=== PATIENT | female | born 1960 | race Caucasian/White ===

== ENCOUNTER 2020-11-30 16:37 | Emergency (ER) | payer BC ==
[2020-11-30 18:49] VITALS: BP 111/68; PULSE 78
--- NOTE | 2020-11-30 18:57 | EDM.PDOC ---
ED HPI GENERAL MEDICAL PROBLEM - General Stated Complaint: ULTRASOUND LEFT CALF Time Seen by Provider: 11/30/20 18:50 Source of Information: Reports: Patient History Limitations: Reports: No Limitations - History of Present Illness INITIAL COMMENTS - FREE TEXT/NARRATIVE: ED with c/o discomfort to posterior left calf. Started Saturday. Recent surgery to left hip last laproscopy to repair tendon and shave bone. Dr told her she should be checked to rule out clot. No clotting hx. Ambulating with crutches. No SOB left calf Pain Score (Numeric/FACES): 2 - Related Data Allergies Allergy/AdvReac Type Severity Reaction Status Date / Time acetaminophen [From Percocet] AdvReac Itching Verified 11/30/20 18:55 oxycodone HCl [From Percocet] AdvReac Itching Verified 11/30/20 18:55 Home Meds: Home Meds Acetaminophen [Tylenol] 650 mg PO Q4H PRN 12/14/14 [History] Past Medical History - Past Health History Medical/Surgical History: Denies Medical/Surgical History ED ROS GENERAL - Review of Systems Review Of Systems: Comprehensive ROS is negative, except as noted in HPI. ED EXAM, GENERAL - Physical Exam Exam: See Below Exam Limited By: No Limitations General Appearance: Alert, No Apparent Distress Ears: Normal External Exam Nose: Normal Inspection Throat/Mouth: Normal Inspection Head: Atraumatic, Normocephalic Neck: Normal Inspection Respiratory/Chest: No Respiratory Distress, Lungs Clear Cardiovascular: Normal Peripheral Pulses, Regular Rate, Rhythm Extremities: Other (dime size frimness left posterior calf.) Neurological: Alert, Oriented Course - Vital Signs Last Recorded V/S: Last Vital Signs Temp 98.0 F 11/30/20 18:48 Pulse 78 11/30/20 18:48 Resp 18 11/30/20 18:48 BP 111/68 11/30/20 18:48 Pulse Ox 97 11/30/20 18:48 - Orders/Labs/Meds Meds: Medications Discontinued Medications Generic Name Dose Route Start Last Admin Trade Name Freq PRN Reason Stop Dose Admin Enoxaparin Sodium 60 mg 11/30/20 20:47 Lovenox SUBCUT 11/30/20 20:48 ONETIME ONE Departure - Departure Time of Disposition: 20:55 Disposition: Home, Self-Care 01 Condition: Good Clinical Impression: Status post hip surgery, Superficial vein thrombosis - Discharge Information *PRESCRIPTION DRUG MONITORING PROGRAM REVIEWED*: No *COPY OF PRESCRIPTION DRUG MONITORING REPORT IN PATIENT LORRAINE: No Instructions: Venous Thromboembolism Prevention Additional Instructions: aspirin 81mg EC daily clinic follow up or phone contact with surgeon regarding superficial DVT ( isolated left gastrocnemius) Urgent follow up if any SOB or difficulty breathing or increased pain and swelling of extremity Sepsis Event Note (ED) - Focused Exam Vital Signs: Vital Signs Temp Pulse Resp BP Pulse Ox 11/30/20 18:48 98.0 F 78 18 111/68 97
--- NOTE | 2020-11-30 20:23 | US ---
PROCEDURE INFORMATION: Exam: US Duplex Left Lower Extremity Veins, Limited Exam date and time: 11/30/2020 7:22 PM Age: 60 years old Clinical indication: Pain; Leg, lower; Left; Patient HX: Hip surgery; Additional info: Recent foot surgery; Pain and swelling in calf TECHNIQUE: Imaging protocol: Real-time Duplex ultrasound of the Left Lower Extremity with 2-D haynes scale, color Doppler flow and spectral waveform analysis with image documentation. Limited exam focused on the left lower extremity veins. COMPARISON: No relevant prior studies available. FINDINGS: Left deep veins: The left common femoral vein, femoral vein, and popliteal vein are normal and compressible with the appropriate flow augmentation. The gastrocnemius vein is noncompressible. Remainder of the calf veins are normal and compressible. Left superficial veins: The left saphenofemoral junction is patent and compressible. Soft tissues: There is no soft tissue abnormality seen. IMPRESSION: Isolated left gastrocnemius vein thrombosis.
[2020-11-30] MEDS ORDERED: Enoxaparin 60 MG/0.6 ML Syringe SUBCUT ONE (20:47)
== END 2020-11-30 21:18 | disposition home or self-care (01) ==
LOC: DL.ED 16:37
DX: I82.812 Embolism and thrombosis of superficial veins of left lower extremity (principal); Z88.5 Allergy status to narcotic agent; Z98.890 Other specified postprocedural states
CPT/HCPCS: 93971; 96372; 99283; J1650

== ENCOUNTER 2024-11-30 05:28 | Day surgery (SDC) | payer BC, MEDICARE ==
[2024-11-30] MEDS: Dextrose 5%-0.45% NaCl 1,000 ML IV SCH (05:56)
[2024-11-30] MEDS ORDERED: Midazolam 1 MG/ML 2 ML SDV ONE (06:12)
[2024-11-30] MEDS ORDERED: fentaNYL 100 MCG/2 ML SDV IV ONE (06:12)
[2024-11-30] MEDS ORDERED: Midazolam 1 MG/ML 2 ML SDV IV ONE (06:12)
[2024-11-30] MEDS ORDERED: fentaNYL 100 MCG/2 ML SDV ONE (06:12)
[2024-11-30] MEDS: fentaNYL 100 MCG/2 ML SDV IV ONE ×4 (06:26→06:37)
[2024-11-30] MEDS: Midazolam 1 MG/ML 2 ML SDV IV ONE ×6 (06:27→06:35)
[2024-11-30 08:18] VITALS: BP 103/70; PULSE 60
== END 2024-11-30 08:24 | disposition home or self-care (01) ==
LOC: DL.ENDO 05:28
PROVIDERS: ATTEND Internal Medicine Gastroenterology
DX: Z12.11 Encounter for screening for malignant neoplasm of colon (principal); R19.5 Other fecal abnormalities; Z86.16 Personal history of COVID-19
CPT/HCPCS: J2250; J3010; J7799